=== PATIENT | female | born 1965 | race Hispanic/Latino ===

== ENCOUNTER 2021-02-16 23:42 | Emergency (ER) | payer MEDICARE ==
--- NOTE | 2021-02-17 01:00 | Emergency Department Report ---
HPI - General Chief Complaint: Medical Clearance Time Seen by Provider: 02/17/21 00:36 - HPI HPI: 55-year-old female with history of bipolar disorder and GERD presents for medication refill. She says she ran out of her medications approximately 4 days ago. She is able to list her medications and says she takes Haldol 5 mg twice daily, famotidine 20 mg twice daily, BuSpar 10 mg twice daily, and hydroxyzine 25 mg twice daily as needed. She also says she takes Zofran 4 mg ODT occasionally for nausea. She denies any physical symptoms or complaints of any kind. ED Past Medical Hx - Past Medical History Hx Hypertension: Yes Hx Congestive Heart Failure: No Hx Diabetes: No Hx Psychiatric Treatment: Yes (paranoid schizophrenia, bi polar/manic) Hx Asthma: Yes Hx COPD: Yes - Social History Smoking Status: Current Every Day Smoker - Medications Home Medications: Home Medications Medication Instructions Recorded Confirmed Last Taken Type Albuterol Mdi (or & Nicu Only) 1 puff IH QID PRN #8.5 gram 08/12/19 04/23/20 Unknown Rx [ProAir HFA Inhaler] Famotidine [Acid-Pep] 20 mg PO TID 04/23/20 04/23/20 Unknown History LORazepam [Ativan] 0.5 mg PO BID #14 tablet 04/25/20 Unknown Rx OLANzapine [Zyprexa] 10 mg PO BID #60 tablet 04/25/20 Unknown Rx busPIRone [Buspar] 15 mg PO TID #90 tablet 04/25/20 Unknown Rx Famotidine [Acid-Pep] 20 mg PO BID PRN #30 tablet 02/17/21 Unknown Rx Ondansetron [Zofran Odt] 4 mg PO Q8HR PRN #15 tab.rapdis 02/17/21 Unknown Rx busPIRone [Buspar] 10 mg PO BID #30 tab 02/17/21 Unknown Rx haloperidoL [Haldol] 5 mg PO BID #30 tablet 02/17/21 Unknown Rx hydrOXYzine HCL [Atarax] 25 mg PO BID PRN #30 tablet 02/17/21 Unknown Rx ED Review of Systems ROS: Stated complaint: MEDICATION REFILL Other details as noted in HPI Comment: All other systems reviewed and negative Constitutional: denies: chills, fever Eyes: denies: eye pain, vision change ENT: denies: throat pain, congestion Respiratory: denies: cough, shortness of breath Cardiovascular: denies: chest pain, palpitations, syncope Gastrointestinal: denies: abdominal pain, nausea, vomiting Genitourinary: denies: dysuria, frequency Musculoskeletal: denies: back pain, arthralgia Skin: denies: rash, lesions Neurological: denies: headache, weakness, numbness Psychiatric: denies: anxiety, depression, auditory hallucinations, visual hallucinations, homicidal thoughts, suicidal thoughts Physical Exam - Physical Exam Vital Signs: Vital Signs 02/16/21 23:47 Temperature 97.9 F Pulse Rate 78 Respiratory 16 Rate Blood Pressure 154/82 [Left] O2 Sat by Pulse 99 Oximetry Physical Exam: GENERAL: Well developed and well nourished. No acute distress HEAD: Normocephalic. No obvious signs of trauma. ENT: Moist mucous membranes. EYES: Extraocular movements are intact. Pupils are equal round and reactive to light bilaterally NECK: Supple. Full ROM is intact. Trachea is midline. LUNGS: Nonlabored breathing. Equal chest rise bilaterally. Clear to auscultation bilaterally. CARDIOVASCULAR: Regular rate and rhythm. VASCULAR: Cap refill < 2 seconds ABDOMEN: Abdomen is soft and nondistended. There is no significant tenderness, guarding or rebound. SKIN: Skin is warm and dry NEURO: Patient is awake, alert, and oriented. 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 No focal deficits. Normal motor and sensory exam throughout. Normal speech. MUSCULOSKELETAL: No obvious deformities. No significant tenderness. Normal ROM throughout. BACK/SPINE: No costovertebral angle tenderness. ED Course Vital Signs 02/16/21 23:47 Temperature 97.9 F Pulse Rate 78 Respiratory 16 Rate Blood Pressure 154/82 [Left] O2 Sat by Pulse 99 Oximetry ED Medical Decision Making - Medical Decision Making 55-year-old female here for medication refill. She has been out of her medications for 4 days and is able to list them. Denies any physical complaints or symptoms of any kind. Afebrile and with normal vital signs we will refill her medications and instructed to follow-up with a primary care doctor for fu rther medication refills Critical care attestation.: If time is entered above; I have spent that time in minutes in the direct care of this critically ill patient, excluding procedure time. ED Disposition Clinical Impression: Medication refill, Bipolar I disorder, mild, current or most recent episode manic, in partial remission Disposition: 01 HOME / SELF CARE / HOMELESS Is pt being admited?: No Condition: Stable Instructions: Supporting Someone With Bipolar Disorder Additional Instructions: You have been given 2 weeks of your medications. Please follow-up with primary care doctor for further refills of your medication. I have given you a referral to a clinic which accepts patients of all insurance status and takes into account irritability to pay. Return to the emergency department should you develop worsening symptoms or new health concerns of any kind. Prescriptions: Famotidine [Acid-Pep] 20 mg PO BID PRN #30 tablet PRN Reason: Dyspepsia hydrOXYzine HCL [Atarax] 25 mg PO BID PRN #30 tablet PRN Reason: Anxiety busPIRone [Buspar] 10 mg PO BID #30 tab haloperidoL [Haldol] 5 mg PO BID #30 tablet Ondansetron [Zofran Odt] 4 mg PO Q8HR PRN #15 tab.rapdis PRN Reason: Nausea Referrals: [facility] [Provider Group] - 3-5 Days
[2021-02-17 01:11] VITALS: BP 160/68
== END 2021-02-17 01:17 | disposition home or self-care (01) ==
LOC: ED 23:42
DX: F31.9 Bipolar disorder, unspecified (principal); Z76.0 Encounter for issue of repeat prescription; I10 Essential (primary) hypertension; J44.9 Chronic obstructive pulmonary disease, unspecified; Z88.8 Allergy status to other drugs, medicaments and biological substances; Z79.899 Other long term (current) drug therapy
CPT/HCPCS: 99283

== ENCOUNTER 2021-10-24 00:31 | Emergency (ER) | payer MEDICARE ==
--- NOTE | 2021-10-24 01:22 | Emergency Department Report ---
ED Shortness of Breath HPI - General Chief Complaint: Dyspnea/Respdistress Stated Complaint: LEÓN Time Seen by Provider: 10/24/21 00:49 Source: patient, EMS Mode of arrival: Stretcher Limitations: No Limitations - History of Present Illness Initial Comments: 56 yo F with history of COPD and Asthma and extensive smoking pack years who present with sob that started couples of days ago and progressively worsening. No fever or chills reported. No other modifying or associated factors noted. - Related Data Home Medications Medication Instructions Recorded Confirmed Last Taken Famotidine [Acid-Pep] 20 mg PO TID 04/23/20 04/23/20 Unknown Previous Rx's Medication Instructions Recorded Last Taken Type Albuterol Mdi (or & Nicu Only) 1 puff IH QID PRN #8.5 gram 08/12/19 Unknown Rx [ProAir HFA Inhaler] LORazepam [Ativan] 0.5 mg PO BID #14 tablet 04/25/20 Unknown Rx OLANzapine [Zyprexa] 10 mg PO BID #60 tablet 04/25/20 Unknown Rx busPIRone [Buspar] 15 mg PO TID #90 tablet 04/25/20 Unknown Rx Famotidine [Acid-Pep] 20 mg PO BID PRN #30 tablet 02/17/21 Unknown Rx Ondansetron [Zofran Odt] 4 mg PO Q8HR PRN #15 tab.rapdis 02/17/21 Unknown Rx busPIRone [Buspar] 10 mg PO BID #30 tab 02/17/21 Unknown Rx haloperidoL [Haldol] 5 mg PO BID #30 tablet 02/17/21 Unknown Rx hydrOXYzine HCL [Atarax] 25 mg PO BID PRN #30 tablet 02/17/21 Unknown Rx Doxycycline Hyclate [Doxycycline 100 mg PO Q12HR 7 Days #14 tab NS 10/24/21 Unknown Rx Hyclate TAB] predniSONE [Deltasone] 20 mg PO BID 5 Days #10 tab NS 10/24/21 Unknown Rx Allergies Allergy/AdvReac Type Severity Reaction Status Date / Time divalproex sodium Allergy Unknown Verified 08/12/19 11:48 [From Depakote] paliperidone [From Invega] Allergy Anaphylaxis Verified 08/12/19 11:49 quetiapine [From Seroquel] Allergy Unknown Verified 08/12/19 11:48 ED Review of Systems ROS: Stated complaint: LEÓN Other details as noted in HPI Comment: All other systems reviewed and negative Respiratory: cough, shortness of breath Cardiovascular: denies: chest pain ED Past Medical Hx - Past Medical History Hx Hypertension: Yes Hx Congestive Heart Failure: No Hx Diabetes: No Hx Psychiatric Treatment: Yes (paranoid schizophrenia, bi polar/manic) Hx Asthma: Yes Hx COPD: Yes - Social History Smoking Status: Current Every Day Smoker - Medications Home Medications: Home Medications Medication Instructions Recorded Confirmed Last Taken Type Albuterol Mdi (or & Nicu Only) 1 puff IH QID PRN #8.5 gram 08/12/19 04/23/20 Unknown Rx [ProAir HFA Inhaler] Famotidine [Acid-Pep] 20 mg PO TID 04/23/20 04/23/20 Unknown History LORazepam [Ativan] 0.5 mg PO BID #14 tablet 04/25/20 Unknown Rx OLANzapine [Zyprexa] 10 mg PO BID #60 tablet 04/25/20 Unknown Rx busPIRone [Buspar] 15 mg PO TID #90 tablet 04/25/20 Unknown Rx Famotidine [Acid-Pep] 20 mg PO BID PRN #30 tablet 02/17/21 Unknown Rx Ondansetron [Zofran Odt] 4 mg PO Q8HR PRN #15 tab.rapdis 02/17/21 Unknown Rx busPIRone [Buspar] 10 mg PO BID #30 tab 02/17/21 Unknown Rx haloperidoL [Haldol] 5 mg PO BID #30 tablet 02/17/21 Unknown Rx hydrOXYzine HCL [Atarax] 25 mg PO BID PRN #30 tablet 02/17/21 Unknown Rx Doxycycline Hyclate [Doxycycline 100 mg PO Q12HR 7 Days #14 tab NS 10/24/21 Unknown Rx Hyclate TAB] predniSONE [Deltasone] 20 mg PO BID 5 Days #10 tab NS 10/24/21 Unknown Rx ED Physical Exam - General Limitations: No Limitations General appearance: alert, in no apparent distress - Head Head exam: Present: normal inspection - Eye Eye exam: Present: normal appearance Pupils: Present: normal accommodation - ENT ENT exam: Present: normal exam, normal orophraynx, mucous membranes moist - Neck Neck exam: Present: normal inspection, full ROM. Absent: tenderness - Respiratory Respiratory exam: Present: normal lung sounds bilaterally, wheezes. Absent: respiratory distress, accessory muscle use - Cardiovascular Cardiovascular Exam: Present: regular rate, normal rhythm, normal heart sounds - GI/Abdominal GI/Abdominal exam: Present: soft, normal bowel sounds. Absent: distended, t enderness - Extremities Exam Extremities exam: Present: normal inspection, normal capillary refill. Absent: tenderness, pedal edema - Back Exam Back exam: Absent: tenderness - Neurological Exam Neurological exam: Present: alert, oriented X3 - Psychiatric Psychiatric exam: Present: normal affect, normal mood - Skin Skin exam: Present: warm, normal color ED Course Vital Signs 10/24/21 10/24/21 10/24/21 00:53 01:00 01:01 Temperature 98.1 F Pulse Rate 111 H Respiratory 18 Rate Blood Pressure 134/82 114/73 O2 Sat by Pulse 89 96 90 Oximetry 10/24/21 10/24/21 10/24/21 01:15 01:31 01:45 Temperature Pulse Rate Respiratory Rate Blood Pressure 114/73 114/73 113/67 O2 Sat by Pulse 91 90 92 Oximetry 10/24/21 10/24/21 10/24/21 02:01 02:15 02:30 Temperature Pulse Rate Respiratory Rate Blood Pressure 113/67 113/67 113/67 O2 Sat by Pulse 89 85 88 Oximetry 10/24/21 10/24/21 03:15 03:31 Temperature Pulse Rate Respiratory Rate Blood Pressure 130/81 130/81 O2 Sat by Pulse 85 96 Oximetry ED Medical Decision Making - Lab Data Result diagrams: 10/24/21 02:12 10/24/21 02:12 - EKG Data -: EKG Interpreted by Sc EKG shows normal: sinus rhythm Rate: normal - EKG Data 10/24/21 01:23 Noted with normal sinus rhythm at a rate of 92 beats per minutes with left ventricular hypertrophy and no acute ST elevation or depression in this abnormal ECG. - Medical Decision Making Here with shortness of breath--among differential diagnosis could be but not limited to acute exacerbation of COPD, myocardiac infarction, pulmonary emb olism, acute exacerbation of asthma, pneumothorax, pneumonia or Viral or Bacterial Upper/Lower respiratory tract infection or other systemic infection.--To rule out the above will go ahead and order EKG, cardiac enzyme including troponin, BNP, CKMB, chest x-ray, CBC, CMP, UA. In the meantime we will go ahead and treat with DuoNeb, 125 mg of Solu-Medrol, and will make a case for antibiotics Levaquin considering likely cause to be acute COPD exacerbation and continue to monitor the patient. Labs reviewed and noted with mild hyperkalemia 5.1 patient already had albuterol treatment for her breathing above Critical care attestation.: If time is entered above; I have spent that time in minutes in the direct care of this critically ill patient, excluding procedure time. ED Disposition Clinical Impression: COPD with acute exacerbation, Hyponatremia, Hyperkalemia Dyspnea Qualifiers: Dyspnea type: unspecified Qualified Code(s): R06.00 - Dyspnea, unspecified Disposition: HOME / SELF CARE / HOMELESS Is pt being admited?: No Does the pt Need Aspirin: No Condition: Stable Instructions: Chronic Obstructive Pulmonary Disease (ED), Shortness of Breath, Adult, [id number], Chronic Obstructive Pulmonary Disease Exacerbation, [id number], Eating Plan for Chronic Obstructive Pulmonary Disease, Hyperkalemia Additional Instructions: Avoid smoking as this likely will make your symptoms worse Take and complete your prednisone as prescribed to continue help your symptoms Call and follow up with your doctor in 3-6 days for progress Call or return to ED if your symptoms worsen Prescriptions: predniSONE [Deltasone] 20 mg PO BID 5 Days #10 tab NS Doxycycline Hyclate [Doxycycline Hyclate TAB] 100 mg PO Q12HR 7 Days #14 tab NS Time of Disposition: 04:06
[2021-10-24] MEDS ORDERED: IPRATROPIUM 0.02% NEBU 2.5 ML IH ONE (02:00)
[2021-10-24] MEDS ORDERED: ALBUTEROL 2.5 MG/3 ML NEBU IH ONE (02:00)
--- NOTE | 2021-10-24 02:30 | XRay Report ---
CHEST 1 VIEW INDICATION / CLINICAL INFORMATION: Dyspnea STUDY TIME: 209 COMPARISON: 04/22/2020 FINDINGS: SUPPORT DEVICES: None HEART / MEDIASTINUM: Mild cardiomegaly LUNGS / PLEURA: Congestive changes and pulmonary edema are moderately prominent. No obvious pleural e ffusions. No pneumothorax. ADDITIONAL FINDINGS: No significant additional findings. Signer Name: Edwin Tristan MD Signed: 10/24/2021 2:26 AM Workstation Name: [id number]
[2021-10-24 02:34] LABS: Basophils % (Auto) 0.4 % (0.0-1.8); Eosinophils % (Auto) 0.4 % (0.0-4.3); Hematocrit 36.6 % (30.3-42.9); Hemoglobin 12.9 gm/dl (10.1-14.3); Lymphocytes # (Auto) 1.1 K/mm3 (1.2-5.4); Lymphocytes % (Auto) 15.5 % (13.4-35.0); Mean Corpuscular HGB Conc 35 % (30-34); Mean Corpuscular Volume 98 fl (79-97); Monocytes # (Auto) 0.7 K/mm3 (0.0-0.8); Monocytes % (Auto) 8.9 % (0.0-7.3); Platelet Count 233 K/mm3 (140-440); Red Blood Count 3.75 M/mm3 (3.65-5.03); Red Cell Distribution Width 13.1 % (13.2-15.2)
[2021-10-24 02:43] LABS: INR 0.91 (0.87-1.13)
[2021-10-24 02:44] LABS: Partial Thromboplastin Time 31.3 Sec. (24.2-36.6)
[2021-10-24 02:47] LABS: Alanine Aminotransferase 38 units/L (7-56); Blood Urea Nitrogen 5 mg/dL (7-17); Calcium 8.7 mg/dL (8.4-10.2); Hemolysis Index 62
[2021-10-24 03:08] LABS: BUN/Creatinine Ratio 10
[2021-10-24 03:32] LABS: Color,Urine Yellow (Yellow)
[2021-10-24 03:46] VITALS: BP 130/81
[2021-10-24 03:52] LABS: Chol/HDL Ratio 2.91 %
--- NOTE | 2021-10-25 10:30 | Electrocardiograph Report ---
[facility] Test Date: 2021-10-24 Test Time: 00:52:26 Pat Name: BO BRIGGS Department: Room: Gender: F Barge Hand: SHALONDA ROLAND : 1965 Requested By: VAMSI LITTLE Order Number: [id number] Reading MD: Kirill Rose Measurements Intervals [place] Rate: 92 P: 68 LA: 185 QRS: 22 QRSD: 105 T: 83 QT: 383 QTc: 474 Interpretive Statements Sinus rhythm Ventricular premature complex Left ventricular hypertrophy ST elevation secondary to LVH No previous ECG available for comparison Electronically Signed On 10-25-2021 10:30:14 EDT by Kirill Rose
== END 2021-10-24 04:24 | disposition home or self-care (01) ==
LOC: ED 00:31
DX: J44.1 Chronic obstructive pulmonary disease with (acute) exacerbation (principal); E87.1 Hypo-osmolality and hyponatremia; E87.5 Hyperkalemia; I10 Essential (primary) hypertension; F17.200 Nicotine dependence, unspecified, uncomplicated; Z88.8 Allergy status to other drugs, medicaments and biological substances; Z79.899 Other long term (current) drug therapy
CPT/HCPCS: 36415; 71045; 80053; 80061; 81001; 82140; 84484; 85025; 85610; 85730; 93005; 96365; 99284; J1956